=== PATIENT | female | born 1950 | race Caucasian/White ===

== ENCOUNTER 2016-11-13 | Outpatient (CLI) | END 2016-11-13 06:12 | disposition critical access hospital (66) | CPT/HCPCS: A0425; A0427 ==

== ENCOUNTER 2016-11-13 06:32 | Emergency (ER) | payer MEDICARE, OTHER ==
[2016-11-13] MEDS ORDERED: SODIUM CHLORIDE 0.9% 1,000 ML IV ONE (07:46)
[2016-11-13] MEDS ORDERED: DEXAMETHASONE 10 MG/ML VIAL IVP STA (07:46)
[2016-11-13] MEDS ORDERED: CHERRY SYRUP 10 ML UDC PO ONE (08:01)
[2016-11-13] MEDS ORDERED: DEXAMETHASONE 10 MG/ML VIAL ONE ×2 (08:01→08:19)
== END 2016-11-13 09:56 | disposition home or self-care (01) ==
DX: E86.0 Dehydration (principal); J18.9 Pneumonia, unspecified organism; J45.21 Mild intermittent asthma with (acute) exacerbation; I10 Essential (primary) hypertension; E11.9 Type 2 diabetes mellitus without complications; Z79.4 Long term (current) use of insulin; Z79.82 Long term (current) use of aspirin
CPT/HCPCS: 36415; 80053; 83690; 85025; 99283; 99284; A9270

== ENCOUNTER 2016-11-18 12:50 | Outpatient (CLI) | payer MEDICARE, OTHER | END 2016-11-18 12:51 | disposition home or self-care (01) | DX: N05.9 Unspecified nephritic syndrome with unspecified morphologic changes (principal) ==

== ENCOUNTER 2016-11-19 10:16 | Outpatient (CLI) | payer MEDICARE, OTHER | END 2016-11-19 10:17 | disposition home or self-care (01) | DX: N05.9 Unspecified nephritic syndrome with unspecified morphologic changes (principal) ==

== ENCOUNTER 2016-12-12 15:09 | Outpatient (CLI) | payer MEDICARE, OTHER | END 2016-12-12 15:10 | disposition home or self-care (01) | DX: N05.9 Unspecified nephritic syndrome with unspecified morphologic changes (principal) ==

== ENCOUNTER 2017-02-06 12:32 | Observation (INO) | payer MEDICARE, OTHER ==
[2017-02-06] MEDS ORDERED: SODIUM CHLORIDE FLUSH 0.9% 10 ML SYRINGE IVP PRN (16:29)
[2017-02-06] MEDS ORDERED: CARVEDILOL 12.5 MG TABLET PO SCH (16:59)
[2017-02-06] MEDS ORDERED: LORazepam 2 MG/ML SYRINGE IVP PRN (17:26)
[2017-02-06] MEDS: SODIUM CHLORIDE FLUSH 0.9% 10 ML SYRINGE IVP SCH (20:12)
[2017-02-07] MEDS: SODIUM CHLORIDE FLUSH 0.9% 10 ML SYRINGE IVP SCH ×2 (06:03→11:09)
[2017-02-07] MEDS ORDERED: POLYETHYLENE GLYCOL 3350 17 GM PACKET PO SCH (09:00)
[2017-02-07] MEDS ORDERED: ASPIRIN EC 81 MG TABLET PO SCH (09:00)
[2017-02-07] MEDS ORDERED: ISOSORBIDE MONONITRATE ER 30 MG TABLET PO SCH (09:00)
[2017-02-07] MEDS ORDERED: PANTOPRAZOLE 40 MG TABLET PO SCH (09:00)
[2017-02-07] MEDS ORDERED: CARVEDILOL 12.5 MG TABLET PO SCH (09:00)
[2017-02-07] MEDS ORDERED: INSULIN GLARGINE 300 UNIT/3 ML PEN SUBQ SCH (09:00)
[2017-02-07] MEDS ORDERED: SERTRALINE 25 MG TABLET PO SCH (09:00)
[2017-02-07] MEDS ORDERED: DEXTROSE 5% 1,000 ML IV PRN (13:00)
[2017-02-07] MEDS ORDERED: DEXTROSE 50% ABBOJECT 25 GM/50 ML SYRINGE IVP PRN (13:00)
[2017-02-07] MEDS ORDERED: DEXTROSE GEL 37.5 GM TUBE PO PRN (13:00)
[2017-02-07] MEDS ORDERED: GLUCAGON 1 MG/ML VIAL SUBQ PRN (13:00)
[2017-02-07] MEDS ORDERED: amLODIPine 5 MG TABLET PO ONE (13:04)
[2017-02-07] MEDS ORDERED: CLOPIDOGREL 75 MG TABLET PO ONE (14:06)
[2017-02-07] MEDS ORDERED: INSULIN ASPART 300 UNIT/3 ML PEN SUBQ SCH (17:00)
[2017-02-07] MEDS ORDERED: ATORVASTATIN 10 MG TABLET PO SCH (21:00)
== END 2017-02-07 16:00 | disposition home or self-care (01) ==
DX: G45.9 Transient cerebral ischemic attack, unspecified (principal); I12.9 Hypertensive chronic kidney disease with stage 1 through stage 4 chronic kidney disease, or unspecified chronic kidney disease; E11.22 Type 2 diabetes mellitus with diabetic chronic kidney disease; N18.9 Chronic kidney disease, unspecified; K21.9 Gastro-esophageal reflux disease without esophagitis; Z95.5 Presence of coronary angioplasty implant and graft; Z86.73 Personal history of transient ischemic attack (TIA), and cerebral infarction without residual deficits; Z79.4 Long term (current) use of insulin; Z79.82 Long term (current) use of aspirin
CPT/HCPCS: 36415; 70450; 70544; 70547; 70551; 80053; 81001; 82947; 83036; 83690; 85025; 93005; 93010; 99285; A9270; G0378; J1815

== ENCOUNTER 2017-03-07 09:37 | Outpatient (CLI) | payer MEDICARE, OTHER | END 2017-03-07 09:38 | disposition home or self-care (01) | DX: N05.9 Unspecified nephritic syndrome with unspecified morphologic changes (principal); D70.9 Neutropenia, unspecified; R80.9 Proteinuria, unspecified; N25.81 Secondary hyperparathyroidism of renal origin ==

== ENCOUNTER 2017-03-23 14:33 | Outpatient (CLI) | payer MEDICARE, OTHER | END 2017-03-23 14:34 | disposition EMS.NT | LOC: EMS 14:33 | PROVIDERS: ATTEND Surgery | DX: Z03.89 Encounter for observation for other suspected diseases and conditions ruled out (principal); W10.8XXA Fall (on) (from) other stairs and steps, initial encounter; Y93.01 Activity, walking, marching and hiking; Y92.008 Other place in unspecified non-institutional (private) residence as the place of occurrence of the external cause ==

== ENCOUNTER 2017-04-02 10:44 | Emergency (ER) | payer MEDICARE, OTHER ==
--- NOTE | 2017-04-02 12:09 | ED Physician Documentation ---
History of Present Illness - Stated complaint Stated Complaint: L SIDE PAIN - Chief complaint Chief Complaint: General - History obtained from History obtained from: Patient, Family () - History of Present Illness Timing: Other (She fell backwards onto concrete at home, mechanical fall about 10 days ago. Was doing better then got worse again and complains of posterior left low rib pain and some shortness of breath and pain with deep breathing. She denies head injury or neck pain. Of note she is supposed to be on Plavix for a recent TIA, however her medication is missing.) Review of Systems Constitutional: denies: Fever, Chills Throat: denies: Dental pain / toothache, Sore throat Cardiac: denies: Chest pain / pressure, Palpitations, Pedal edema, Calf pain Respiratory: reports: Dyspnea. 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, Hysterectomy Cardiovascular: Coronary stent - Present Medications Home Medications: Ambulatory Orders Medication Instructions Recorded Confirmed Amitriptyline HCl 50 mg PO QPM 07/05/16 02/06/17 Carvedilol [Coreg] 18.75 mg PO BID 07/05/16 02/06/17 Esomeprazole Magnesium 40 mg PO DAILY 07/05/16 02/06/17 Rosuvastatin Calcium [Crestor] 5 mg PO QPM 07/05/16 02/06/17 Sertraline [Zoloft] 25 mg PO DAILY 07/05/16 02/06/17 Isosorbide Mononitrate ER [Imdur] 30 mg PO BID 07/06/16 02/06/17 Insulin Aspart [NovoLOG] 0 - 30 units SUBQ ACHS 11/09/16 02/06/17 Aspirin [Aspirin EC] 81 mg PO DAILY 02/06/17 02/06/17 Furosemide 20 mg PO DAILY PRN 02/06/17 02/06/17 Insulin Glargine [Lantus Solostar] 40 units SUBQ BID 02/06/17 02/06/17 Clopidogrel Bisulfate [Plavix] 75 mg PO DAILY #30 tablet 02/07/17 amLODIPine [Norvasc] 5 mg PO DAILY #30 tablet 02/07/17 Clopidogrel [Plavix] 75 mg PO DAILY #30 tablet 04/02/17 Doxycycline Hyclate 100 mg PO BID #14 tablet 04/02/17 - Allergies Allergies/Adverse Reactions: Allergies Allergy/AdvReac Type Severity Reaction Status Date / Time levofloxacin [From Levaquin] Allergy Unknown Verified 04/02/17 10:55 Penicillins Allergy Hives Verified 04/02/17 10:55 prochlorperazine Allergy Unknown Verified 04/02/17 10:55 [From Compazine] prochlorperazine edisylate * Allergy Unknown Verified 04/02/17 10:55 [From Compazine] prochlorperazine maleate * Allergy Unknown Verified 04/02/17 10:55 [From Compazine] - Social History Does the pt smoke?: No Smoking Status: Never smoker Does the pt drink ETOH?: No Does the pt have substance abuse?: No - Immunizations Immunizations are current?: Yes - POLST Patient has POLST: No PD ED PE NORMAL - Vitals Vital signs reviewed: Yes - General General: Alert and oriented X 3, No acute distress - Neck Neck: Supple, no meningeal sign, No bony TTP - Cardiac Cardiac: RRR, No murmur - Respiratory Respiratory: No respiratory distress, Clear bilaterally, Other (Mild tenderness left low posterior ribs, posterior axillary line.) - Abdomen Abdomen: Soft, Non tender - Extremities Extremities: No deformity, No tenderness to palpate - Neuro Neuro: Alert and oriented X 3, Normal speech - Psych Psych: Normal mood, Normal affect Results - Vitals Vitals: Vital Signs - 24 hr 04/02/17 04/02/17 04/02/17 10:47 10:48 13:14 Temperature 36.3 C L Heart Rate 66 66 Respiratory 20 18 Rate Blood Pressure 198/83 H 174/64 H O2 Saturation 94 97 Oxygen O2 Source Room air - Rads (name of study) L ribs and chest Radiology: EMP read contemporaneously (No frx, + small R base infiltrate with effuision) PD MEDICAL DECISION MAKING - ED course ED course: She presents week out after a rib injury on the left, no visible rib fracture on x-ray there but does have a small pneumonia, likely from poor inspiratory effort. She was administered doxycycline and given incentive spirometer and followup advised. She declined pain medication but did need a refill on her Plavix. Departure - Departure Disposition: 01 Home, Self Care Clinical Impression: Chest wall contusion Qualifiers: Encounter type: initial encounter Laterality: left Qualified Code(s): S20.212A - Contusion of left front wall of thorax, initial encounter Pneumonia Qualifiers: Pneumonia type: due to unspecified organism Laterality: right Lung location: lower lobe of lung Qualified Code(s): J18.1 - Lobar pneumonia, unspecified organism Condition: Good Record reviewed to determine appropriate education?: Yes Instructions: Pneumonia Dc, ED Contusion Rib Prescriptions: Doxycycline Hyclate 100 mg PO BID #14 tablet Clopidogrel [Plavix] 75 mg PO DAILY #30 tablet Comments: Followup with your physician, likely they want to get a repeat chest x-ray in a week or 2. Return if worse. Your blood pressure was elevated today on check in to the emergency department. This does not mean that you have hypertension, it is a common phenomenon to check into the emergency department and have elevated blood pressure. I recommend that you see your primary care physician within the week to have it rechecked when you're feeling better.
[2017-04-02 13:15] VITALS: BP 174/64
--- NOTE | 2017-04-02 13:17 | XRAY Preliminary Report ---
Exam: XR Ribs w/PA Chest LT IMPRESSION: 1. No acute bony abnormality. 2. New small right lung base infiltrate and effusion. 3. Borderline cardiomegaly. [facility] SITE ID: [id number]
[2017-04-02] MEDS ORDERED: DOXYCYCLINE 100 MG TABLET PO STA (13:19)
--- NOTE | 2017-04-02 13:25 | XRAY Report ---
EXAM: LEFT RIB RADIOGRAPHY EXAM DATE: 04/02/2017 12:39 PM. CLINICAL HISTORY: Left rib pain, inferior to the left breast, pain wrapping around the chest since a fall on 03/23/2017. COMPARISON: Two-view chest 11/09/2016. TECHNIQUE: 1 view of the chest and 4 views of the ribs. FINDINGS: Bones: Old fractures lateral aspects of the left fifth, sixth, seventh and eighth ribs. No acute trabecular or cortical disruption. Lungs: New small patchy infiltrate right lateral lung base. Slight blunting right lateral and posteri or costophrenic angles. Interval clearing of the left lung infiltrate. No vascular congestion nor pne umothorax. Mediastinum: Stable borderline cardiomegaly. No adenopathy. Other: None. IMPRESSION: 1. No acute bony abnormality. 2. New small right lung base infiltrate and effusion. 3. Borderline cardiomegaly. [facility] Referring Provider Line: [phone] SITE ID: [id number]
[2017-04-02] MEDS ORDERED: DOXYCYCLINE 100 MG TABLET PO ONE (13:28)
== END 2017-04-02 13:40 | disposition home or self-care (01) ==
LOC: ED 10:44
DX: S20.212A Contusion of left front wall of thorax, initial encounter (principal); W01.0XXA Fall on same level from slipping, tripping and stumbling without subsequent striking against object, initial encounter; J18.9 Pneumonia, unspecified organism; I10 Essential (primary) hypertension; E11.9 Type 2 diabetes mellitus without complications; Z79.4 Long term (current) use of insulin; Z86.73 Personal history of transient ischemic attack (TIA), and cerebral infarction without residual deficits; Z79.01 Long term (current) use of anticoagulants
CPT/HCPCS: 71101; 99283; A9270

== ENCOUNTER 2017-04-14 09:35 | Outpatient (CLI) | payer MEDICARE, OTHER ==
[2017-04-14 10:21] LABS: CALCIUM 8.6 mg/dL (8.5-10.3); CREATININE 3.7 mg/dL (0.4-1.0); POTASSIUM 4.8 mmol/L (3.5-5.0)
== END 2017-04-14 09:36 | disposition home or self-care (01) ==
LOC: LAB 09:35
PROVIDERS: ATTEND Internal Medicine Nephrology
DX: N05.9 Unspecified nephritic syndrome with unspecified morphologic changes (principal)
CPT/HCPCS: 36415; 80048

== ENCOUNTER 2017-04-16 07:32 | Emergency (ER) | payer MEDICARE, OTHER ==
--- NOTE | 2017-04-16 08:05 | ED Physician Documentation ---
PD HPI DYSPNEA - Stated complaint Stated Complaint: DIFFICUTLY BREATHING - Chief complaint Chief Complaint: Resp - History obtained from History obtained from: Patient - History of Present Illness Timing - onset: How many weeks ago (2) Timing - onset during: Rest, Light activity Timing - duration: Weeks (2) Timing - details: Gradual onset, Still present Inciting event(s): URI Improved by: Rest Worsened by: Exertion Associated symptoms: Wheezing. No: Fever, Cough, Hemoptysis, Diaphoresis, Bilateral edema Similar symptoms before: Diagnosis (pneumonia and rad) Recently seen: Emergency Dept (Seen here 04-05-17 diagnosed with pneumonia and placed on doxycycline) - Additional information Additional information: 66 y/o female has had a fall on day, contused the left ribs and developed a pneumonia about 10 days later. She does not have cough or fever but she does have dyspnea and this has persisted despite completing the course of antibiotic. She has not used an inhaler or steroids with this episode. Review of Systems Constitutional: denies: Fever Eyes: denies: Decreased vision Ears: denies: Ear pain Nose: reports: Congestion Throat: denies: Sore throat Cardiac: denies: Chest pain / pressure, Palpitations Respiratory: reports: Dyspnea, Wheezing. denies: Cough GI: denies: Abdominal Pain, Nausea, Vomiting : denies: Dysuria, Frequency Skin: denies: Rash Musculoskeletal: denies: Neck pain PD PAST MEDICAL HISTORY - Past Medical History Cardiovascular: Hypertension, Valve disorder Respiratory: None Neuro: None, CVA Endocrine/Autoimmune: Type 2 diabetes : Renal insuffiency HEENT: None - Past Surgical History Past Surgical History: Yes General: Cholecystectomy, Appendectomy /[employer]IC: Tubal ligation, Hysterectomy Cardiovascular: Coronary stent - Present Medications Home Medications: Ambulatory Orders Medication Instructions Recorded Confirmed Amitriptyline HCl 50 mg PO QPM 07/05/16 04/16/17 Carvedilol [Coreg] 18.75 mg PO BID 07/05/16 04/16/17 Esomeprazole Magnesium 40 mg PO DAILY 07/05/16 04/16/17 Rosuvastatin Calcium [Crestor] 5 mg PO QPM 07/05/16 04/16/17 Sertraline [Zoloft] 25 mg PO DAILY 07/05/16 04/16/17 Insulin Aspart [NovoLOG] 0 - 30 units SUBQ ACHS 11/09/16 04/16/17 Aspirin [Aspirin EC] 81 mg PO DAILY 02/06/17 04/16/17 Furosemide 20 mg PO DAILY PRN 02/06/17 04/16/17 Insulin Glargine [Lantus Solostar] 40 units SUBQ BID 02/06/17 04/16/17 Clopidogrel [Plavix] 75 mg PO DAILY #30 tablet 04/02/17 04/16/17 Albuterol Sulf [Ventolin Hfa 1 - 2 puffs INH Q4HR PRN #1 inhaler 04/16/17 Inhaler] Azithromycin [Zithromax] 250 mg PO DAILY #6 tablet 04/16/17 Calciferol 0 mg DAILY 04/16/17 Cefuroxime Axetil [Ceftin] 500 mg PO Q12H #30 tablet 04/16/17 Colchicine 0 mg PO 04/16/17 predniSONE [Deltasone] 10 mg PO DAILY #26 tablet 04/16/17 - Allergies Allergies/Adverse Reactions: Allergies Allergy/AdvReac Type Severity Reaction Status Date / Time levofloxacin [From Levaquin] Allergy Unknown Verified 04/16/17 07:50 Penicillins Allergy Hives Verified 04/16/17 07:50 prochlorperazine Allergy Unknown Verified 04/16/17 07:50 [From Compazine] prochlorperazine edisylate * Allergy Unknown Verified 04/16/17 07:50 [From Compazine] prochlorperazine maleate * Allergy Unknown Verified 04/16/17 07:50 [From Compazine] - Social History Does the pt smoke?: No Smoking Status: Never smoker Does the pt drink ETOH?: No Does the pt have substance abuse?: No - Immunizations Immunizations are current?: Yes - POLST Patient has POLST: No PD ED PE NORMAL - Vitals Vital signs reviewed: Yes (hypertensive ) - General General: Alert and oriented X 3, No acute distress, Well developed/nourished - HEENT HEENT: Atraumatic, PERRL, EOMI, Other (The left TM shows signs of prior infection with old inflamation around the margins of the TM. The right is clear with tympanosclerosis. ) - Neck Neck: Supple, no meningeal sign, No bony TTP - Cardiac Cardiac: RRR, No murmur - Respiratory Respiratory: No respiratory distress, Other (diminished breath sounds. ) - Abdomen Abdomen: Soft, Non tender - Back Back: No CVA TTP, No spinal TTP - Derm Derm: Normal color, Warm and dry, No rash - Extremities Extremities: No deformity, No edema - Neuro Neuro: No motor deficit, No sensory deficit - Psych Psych: Normal mood, Normal affect Results - Vitals Vitals: Vital Signs - 24 hr 04/16/17 04/16/17 04/16/17 07:38 08:00 08:30 Temperature 36.9 C Heart Rate 77 70 74 Respiratory 18 20 20 Rate Blood Pressure 193/88 H 173/102 H O2 Saturation 98 97 95 04/16/17 04/16/17 04/16/17 09:03 09:10 12:14 Temperature 36.6 C Heart Rate 74 68 70 Respiratory 20 22 20 Rate Blood Pressure 172/98 H 206/86 H O2 Saturation 98 96 Oxygen O2 Source Room air - Labs Labs: Laboratory Tests 04/16/17 04/16/17 04/16/17 08:26 08:26 08:26 WBC 7.3 RBC 3.99 L Hgb 10.6 L Hct 31.9 L MCV 79.9 L MCH 26.5 L MCHC 33.1 RDW 16.3 H Plt Count 156 MPV 7.9 Neut # 4.9 Lymph # 1.4 L [place] # 0.5 Eos # 0.4 Baso # 0.1 Absolute Nucleated RBC 0.00 Nucleated RBCs 0.0 Sodium 135 Potassium 5.0 Chloride 102 Carbon Dioxide 26 Anion Gap 7.0 BUN 71 H Creatinine 3.6 H Estimated GFR (MDRD) 13 L Glucose 142 H Calcium 8.7 Total Bilirubin 0.6 AST 19 ALT 14 Alkaline Phosphatase 121 Troponin I 0.04 B-Natriuretic Peptide Total Protein 6.6 L Albumin 2.7 L Globulin 3.9 Albumin/Globulin Ratio 0.7 L Lipase 24 04/16/17 08:26 WBC RBC Hgb Hct MCV MCH MCHC RDW Plt Count MPV Neut # Lymph # [place] # Eos # Baso # Absolute Nucleated RBC Nucleated RBCs Sodium Potassium Chloride Carbon Dioxide Anion Gap BUN Creatinine Estimated GFR (MDRD) Glucose Calcium Total Bilirubin AST ALT Alkaline Phosphatase Troponin I B-Natriuretic Peptide 1565 H Total Protein Albumin Globulin Albumin/Globulin Ratio Lipase - Rads (name of study) two-view chest Radiology: Prelim report reviewed (Impression: Probable small right pleural effusion, without change. Mild increased bibasilar atelectasis or probable mild infiltrate.), EMP read indepedently, See rad report Procedures - IVC sono (time) 1005 Bedside IVC sono: IVC measures (cm) (0.84), Dehydration PD MEDICAL DECISION MAKING - ED course Complexity details: reviewed old records, reviewed results, re-evaluated patient , considered differential, d/w patient, d/w family ED course: 66 y/o female with a fall and rib contusion and resulting "pneumonia" has developed continued dyspnea. She has improvement with a duo-neb treatment and her x-ray today is read as bibasilar atelectasis or infiltrate. The x-ray does not look like failure. Her BNP is elevated into the 1500 range and she has had an echo showing an ejection fraction of 65% and grade one diastolic dysfunction. An interrogation of the IVC shows a tiny vessel at 0.84 consistent with volume depletion and she is given IV saline as well as IV rocephin. Departure - Departure Disposition: 01 Home, Self Care Clinical Impression: Dehydration Reactive airway disease Qualifiers: Asthma severity: mild intermittent Asthma complication type: with acute exacerbation Qualified Code(s): J45.21 - Mild intermittent asthma with (acute) exacerbation Pneumonia Qualifiers: Pneumonia type: due to unspecified organism Laterality: bilateral Lung location : lower lobe of lung Qualified Code(s): J18.9 - Pneumonia, unspecified organism Instructions: ED Dehydration, ED Pneumonia Adult, ED Reactive Airway Disease Follow-Up: Tu Witt MD [Primary Care Provider] - Prescriptions: Albuterol Sulf [Ventolin Hfa Inhaler] 1 - 2 puffs INH Q4HR PRN #1 inhaler PRN Reason: Shortness Of Air/Wheezing Cefuroxime Axetil [Ceftin] 500 mg PO Q12H #30 tablet predniSONE [Deltasone] 10 mg PO DAILY #26 tablet Azithromycin [Zithromax] 250 mg PO DAILY #6 tablet Discharge Date/Time: 04/16/17 12:30
[2017-04-16 08:30] LABS: BASOPHILS # (AUTO) 0.1 10^3/uL (0.0-0.1); BASOPHILS % (AUTO) 1.1 %; EOSINOPHILS # (AUTO) 0.4 10^3/uL (0.0-0.7); EOSINOPHILS % (AUTO) 5.5 %; HCT - HEMATOCRIT 31.9 % (37.0-47.0); HGB - HEMOGLOBIN 10.6 g/dL (12.0-16.0); LYMPHOCYTES # (AUTO) 1.4 10^3/uL (1.5-3.5); LYMPHOCYTES % (AUTO) 19.3 %; MEAN CORPUSCULAR HEMOGLOBIN 26.5 pg (27.0-31.0); MEAN CORPUSCULAR HGB CONC 33.1 g/dL (32.0-36.0); MEAN CORPUSCULAR VOLUME 79.9 fL (81.0-99.0); MEAN PLATELET VOLUME 7.9 fL (7.9-10.8); MONOCYTES # (AUTO) 0.5 10^3/uL (0.0-1.0); MONOCYTES % (AUTO) 7.2 %; NEUTROPHILS # (AUTO) 4.9 10^3/uL (1.5-6.6); NEUTROPHILS % (AUTO) 66.9 %; RED BLOOD COUNT 3.99 10^6/uL (4.20-5.40); RED CELL DISTRIBUTION WIDTH 16.3 % (12.0-15.0); UNCORRECTED WHITE BLOOD COUNT 7.3 x10^3/uL; WHITE BLOOD COUNT 7.3 x10^3/uL (4.8-10.8)
--- NOTE | 2017-04-16 08:33 | XRAY Preliminary Report ---
Exam: XR Chest 2 View PA/LAT IMPRESSION: Probable small right pleural effusion, without change. Mild increased bibasilar atelectasis or possib le mild infiltrate. [facility] SITE ID: [id number]
--- NOTE | 2017-04-16 08:35 | XRAY Report ---
EXAM: CHEST RADIOGRAPHY EXAM DATE: 04/16/2017 08:18 AM. CLINICAL HISTORY: Dyspnea. COMPARISON: PA chest 04/02/2017. Most recent two-view exam 11/09/2016. TECHNIQUE: 2 views. FINDINGS: Lungs/Pleura: Probable very small right pleural effusion again demonstrated. Increased vertical and b andlike densities lateral right lung base likely represents atelectasis or tracking fluid. Small locu lated pneumothorax is considered unlikely. No other evidence of pneumothorax. Mild right infrahilar a nd medial lower lung probable atelectasis appears slightly increased. Increased mild focal density at the medial left lung base. Mediastinum: Heart and mediastinal contours are unremarkable. Other: Left lateral mid to lower pleural or rib based density as without jaylon change, including comp aring back to 03/28/2016. IMPRESSION: Probable small right pleural effusion, without change. Mild increased bibasilar atelectasis or possib le mild infiltrate. [facility] Referring Provider Line: [phone] SITE ID: [id number]
[2017-04-16 08:46] LABS: ALBUMIN/GLOBULIN RATIO 0.7 (1.0-2.2); BILIRUBIN,TOTAL 0.6 mg/dL (0.2-1.0); CALCIUM 8.7 mg/dL (8.5-10.3); CREATININE 3.6 mg/dL (0.4-1.0); TOTAL PROTEIN 6.6 g/dL (6.7-8.2)
[2017-04-16] MEDS ORDERED: IPRATROPIUM/ALBUTEROL 3 ML NEB INH STA (08:51)
[2017-04-16] MEDS ORDERED: DEXAMETHASONE 10 MG/ML VIAL PO STA (08:51)
[2017-04-16] MEDS ORDERED: DEXAMETHASONE 10 MG/ML VIAL ONE (08:54)
[2017-04-16] MEDS ORDERED: CHERRY SYRUP 10 ML UDC PO ONE (08:54)
[2017-04-16] MEDS ORDERED: SODIUM CHLORIDE 0.9% 1,000 ML IV ONE (10:08)
[2017-04-16] MEDS ORDERED: cefTRIAXone 1 GM in SODIUM CHLORIDE 0.9% MINIBAG 100 ML IV STA (10:08)
[2017-04-16] MEDS ORDERED: cefTRIAXone 1 GM VIAL ONE (10:13)
[2017-04-16 12:14] VITALS: BP 206/86
== END 2017-04-16 12:30 | disposition home or self-care (01) ==
LOC: ED 07:32
DX: J18.9 Pneumonia, unspecified organism (principal); J45.21 Mild intermittent asthma with (acute) exacerbation; E86.0 Dehydration; I10 Essential (primary) hypertension; E11.9 Type 2 diabetes mellitus without complications; Z79.4 Long term (current) use of insulin; Z86.73 Personal history of transient ischemic attack (TIA), and cerebral infarction without residual deficits; Z79.02 Long term (current) use of antithrombotics/antiplatelets; Z79.82 Long term (current) use of aspirin
CPT/HCPCS: 36415; 71020; 80053; 83690; 83880; 84484; 85025; 94640; 96365; 99283; 99284; A9270; J7620

== ENCOUNTER 2017-04-27 06:17 | Outpatient (CLI) | payer MEDICARE, OTHER | END 2017-04-27 06:18 | disposition critical access hospital (66) | LOC: EMS 06:17 | PROVIDERS: ATTEND Surgery | DX: R40.4 Transient alteration of awareness (principal) | CPT/HCPCS: A0425; A0427 ==

== ENCOUNTER 2017-04-27 06:34 | Emergency (ER) | payer MEDICARE, OTHER ==
[2017-04-27] MEDS ORDERED: DEXTROSE 50% ABBOJECT 25 GM/50 ML SYRINGE ONE (06:39)
[2017-04-27] MEDS ORDERED: DEXTROSE 50% ABBOJECT 25 GM/50 ML SYRINGE IVP STA (06:54)
[2017-04-27 07:05] LABS: BASOPHILS # (AUTO) 0.1 10^3/uL (0.0-0.1); EOSINOPHILS # (AUTO) 0.3 10^3/uL (0.0-0.7); EOSINOPHILS % (AUTO) 4.5 %; HCT - HEMATOCRIT 34.3 % (37.0-47.0); HGB - HEMOGLOBIN 10.8 g/dL (12.0-16.0); LYMPHOCYTES # (AUTO) 0.9 10^3/uL (1.5-3.5); LYMPHOCYTES % (AUTO) 14.2 %; MEAN CORPUSCULAR HEMOGLOBIN 25.8 pg (27.0-31.0); MEAN CORPUSCULAR HGB CONC 31.4 g/dL (32.0-36.0); MEAN CORPUSCULAR VOLUME 82.1 fL (81.0-99.0); MEAN PLATELET VOLUME 8.2 fL (7.9-10.8); MONOCYTES # (AUTO) 0.4 10^3/uL (0.0-1.0); NEUTROPHILS # (AUTO) 4.5 10^3/uL (1.5-6.6); NEUTROPHILS % (AUTO) 74.3 %; RED BLOOD COUNT 4.18 10^6/uL (4.20-5.40); RED CELL DISTRIBUTION WIDTH 17.1 % (12.0-15.0)
[2017-04-27 07:18] LABS: ALBUMIN/GLOBULIN RATIO 0.7 (1.0-2.2); BILIRUBIN,TOTAL 0.4 mg/dL (0.2-1.0); CALCIUM 8.3 mg/dL (8.5-10.3); CREATININE 3.8 mg/dL (0.4-1.0); POTASSIUM 4.6 mmol/L (3.5-5.0); TOTAL PROTEIN 5.7 g/dL (6.7-8.2)
[2017-04-27 07:30] VITALS: BP 134/88
--- NOTE | 2017-04-27 07:41 | ED Physician Documentation ---
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 She does not measure but her clothes are fitting looser. She takes lantus 40units bid and she uses sliding scale humalog. This low blood sugar has happened to her several days ago and she has not used any sliding scale since. She has continued the lantus. This morning she was found by her unresponsive and she responded well to the IV D50 given by medics and she was transported as this has recurred. Review of Systems Constitutional: reports: Sweats. denies: Fever, Chills, Myalgias, Fatigue Eyes: denies: Decreased vision Ears: denies: Ear pain Nose: denies: Rhinorrhea / runny nose, Congestion Throat: denies: Sore throat Cardiac: denies: Chest pain / pressure, Palpitations Respiratory: reports: Dyspnea (improved but still present.), Cough (improved) GI: denies: Abdominal Pain, Abdominal Swelling, Nausea, Vomiting : denies: Dysuria, Frequency Skin: denies: Rash Musculoskeletal: denies: Neck pain, Back pain, Extremity pain PD PAST MEDICAL HISTORY - Past Medical History Cardiovascular: Hypertension, Valve disorder Respiratory: None Neuro: None, CVA Endocrine/Autoimmune: Type 2 diabetes : Renal insuffiency HEENT: None Musculoskeletal: Gout - Past Surgical History Past Surgical History: Yes General: Cholecystectomy, Appendectomy /[employer]: Tubal ligation, Hysterectomy Cardiovascular: Coronary stent - Present Medications Home Medications: Ambulatory Orders Medication Instructions Recorded Confirmed Amitriptyline HCl 50 mg PO QPM 07/05/16 04/27/17 Carvedilol [Coreg] 18.75 mg PO BID 07/05/16 04/27/17 Esomeprazole Magnesium 40 mg PO DAILY 07/05/16 04/27/17 Rosuvastatin Calcium [Crestor] 5 mg PO QPM 07/05/16 04/27/17 Sertraline [Zoloft] 25 mg PO DAILY 07/05/16 04/27/17 Insulin Aspart [NovoLOG] 0 - 30 units SUBQ ACHS 11/09/16 04/27/17 Aspirin [Aspirin EC] 81 mg PO DAILY 02/06/17 04/27/17 Furosemide 20 mg PO DAILY PRN 02/06/17 04/27/17 Insulin Glargine [Lantus Solostar] 40 units SUBQ BID 02/06/17 04/27/17 Clopidogrel [Plavix] 75 mg PO DAILY #30 tablet 04/02/17 04/27/17 Albuterol Sulf [Ventolin Hfa 1 - 2 puffs INH Q4HR PRN #1 inhaler 04/16/17 Inhaler] Azithromycin [Zithromax] 250 mg PO DAILY #6 tablet 04/16/17 04/27/17 Calciferol 0 mg DAILY 04/16/17 04/27/17 Cefuroxime Axetil [Ceftin] 500 mg PO Q12H #30 tablet 04/16/17 04/27/17 Colchicine 0 mg PO DAILY PRN 04/16/17 04/27/17 predniSONE [Deltasone] 10 mg PO DAILY #26 tablet 04/16/17 04/27/17 - Allergies Allergies/Adverse Reactions: Allergies Allergy/AdvReac Type Severity Reaction Status Date / Time levofloxacin [From Levaquin] Allergy Unknown Verified 04/27/17 06:43 Penicillins Allergy Hives Verified 04/27/17 06:43 prochlorperazine Allergy Unknown Verified 04/27/17 06:43 [From Compazine] prochlorperazine edisylate * Allergy Unknown Verified 04/27/17 06:43 [From Compazine] prochlorperazine maleate * Allergy Unknown Verified 04/27/17 06:43 [From Compazine] - Social History Does the pt smoke?: No Smoking Status: Never smoker Does the pt drink ETOH?: No Does the pt have substance abuse?: No - Immunizations Immunizations are current?: Yes - POLST Patient has POLST: No PD ED PE NORMAL - Vitals Vital signs reviewed: Yes (hypertensive ) - General General: Alert and oriented X 3, No acute distress, Well developed/nourished - HEENT HEENT: Atraumatic, PERRL, Pharynx benign - Neck Neck: Supple, no meningeal sign, No bony TTP - Cardiac Cardiac: RRR, No murmur - Respiratory Respiratory: No respiratory distress, Clear bilaterally - Abdomen Abdomen: Soft, Non tender - Back Back: No CVA TTP, No spinal TTP - Derm Derm: Normal color, Warm and dry, No rash - Extremities Extremities: No deformity, No edema - Neuro Neuro: Alert and oriented X 3, No motor deficit, No sensory deficit, Normal speech - Psych Psych: Normal mood, Normal affect Results - Vitals Vitals: Vital Signs - 24 hr 04/27/17 04/27/17 04/27/17 06:35 06:46 07:01 Temperature Heart Rate 66 62 70 Respiratory 15 20 26 H Rate Blood Pressure 159/79 H 175/118 H 201/63 H O2 Saturation 99 96 100 04/27/17 07:26 Temperature 35.9 C L Heart Rate 64 Respiratory 16 Rate Blood Pressure 134/88 H O2 Saturation 100 Oxygen O2 Source Room air - EKG (time done) 0727 Rate: Rate (enter#) (65) Intervals: Other (short ME) QRS: LVH Ischemia: Normal ST segments Compare to prior EKG: Unchanged from prior EKG (02-06-17) Computer interpretation: Disagree with computer (I do not find the short ME interval ) - Labs Labs: Laboratory Tests 04/27/17 04/27/17 04/27/17 06:40 06:55 06:55 WBC 6.0 RBC 4.18 L Hgb 10.8 L Hct 34.3 L MCV 82.1 MCH 25.8 L MCHC 31.4 L RDW 17.1 H Plt Count 107 L MPV 8.2 Neut # 4.5 Lymph # 0.9 L [place] # 0.4 Eos # 0.3 Baso # 0.1 Absolute Nucleated RBC 0.00 Nucleated RBCs 0.0 D-Dimer 235.0 Sodium Potassium Chloride Carbon Dioxide Anion Gap BUN Creatinine Estimated GFR (MDRD) Glucose Calcium Total Bilirubin AST ALT Alkaline Phosphatase Troponin I 0.06 Total Protein Albumin Globulin Albumin/Globulin Ratio Lipase 04/27/17 06:55 WBC RBC Hgb Hct MCV MCH MCHC RDW Plt Count MPV Neut # Lymph # [place] # Eos # Baso # Absolute Nucleated RBC Nucleated RBCs D-Dimer Sodium 139 Potassium 4.6 Chloride 104 Carbon Dioxide 26 Anion Gap 9.0 BUN 63 H Creatinine 3.8 H Estimated GFR (MDRD) 12 L Glucose 171 H Calcium 8.3 L Total Bilirubin 0.4 AST 22 ALT 16 Alkaline Phosphatase 95 Troponin I Total Protein 5.7 L Albumin 2.4 L Globulin 3.3 Albumin/Globulin Ratio 0.7 L Lipase 45 PD MEDICAL DECISION MAKING - ED course Complexity details: reviewed old records, reviewed results, re-evaluated patient , considered differential, d/w patient, d/w family ED course: 66 y/o female with type 2 diabetes on insulin has had an insulin reaction that resulted in her being unconscious. She has had lessor episodes every day this week and these were treated with juice at home and she has not talked to her doctor or adjusted her dose of lantus. Today she was very low and require rescue X 2. Her renal function is where she has been running and her trop shows a leak and is consistent with all of her prior trops. She is having some brief sharp spasm like pains in the right upper sternal area this morning. Departure - Departure Disposition: 01 Home, Self Care Clinical Impression: Insulin adverse reaction Qualifiers: Encounter type: initial encounter Qualified Code(s): T38.3X5A - Adverse effect of insulin and oral hypoglycemic [antidiabetic] drugs, initial encounter Condition: Stable Instructions: ED Diabetes Hypoglycemia Insulin React Follow-Up: Tu Witt MD [Primary Care Provider] - Comments: reduce your lantus to 30 units twice per day and follow up with Dr. Witt about your blood pressure and your insulin.
== END 2017-04-27 08:20 | disposition home or self-care (01) ==
LOC: EDUNIT# → ED 06:34
DX: E11.649 Type 2 diabetes mellitus with hypoglycemia without coma (principal); T38.3X5A Adverse effect of insulin and oral hypoglycemic [antidiabetic] drugs, initial encounter; Z79.4 Long term (current) use of insulin; R07.89 Other chest pain; I10 Essential (primary) hypertension
CPT/HCPCS: 36415; 80053; 83690; 84484; 85025; 85379; 93005; 99284; 99285

== ENCOUNTER 2017-05-12 09:11 | Outpatient (CLI) | payer MEDICARE, OTHER ==
[2017-05-12 09:50] LABS: CALCIUM 8.5 mg/dL (8.5-10.3); CREATININE 4.4 mg/dL (0.4-1.0)
== END 2017-05-12 09:12 | disposition home or self-care (01) ==
LOC: LAB 09:11
PROVIDERS: ATTEND Internal Medicine Nephrology
DX: N05.9 Unspecified nephritic syndrome with unspecified morphologic changes (principal)
CPT/HCPCS: 36415; 80048

== ENCOUNTER 2017-08-06 07:38 | Outpatient (CLI) | payer MEDICARE, OTHER | END 2017-08-06 07:39 | disposition short-term general hospital (02) | LOC: EMS 07:38 | PROVIDERS: ATTEND Surgery | DX: R55 Syncope and collapse (principal); R10.9 Unspecified abdominal pain; Z99.2 Dependence on renal dialysis | CPT/HCPCS: A0425; A0427 ==

== ENCOUNTER 2017-09-15 05:25 | Outpatient (CLI) | payer MEDICARE, OTHER | END 2017-09-15 05:26 | disposition home or self-care (01) | LOC: EMS 05:25 | PROVIDERS: ATTEND Surgery | DX: R06.02 Shortness of breath (principal); Z98.62 Peripheral vascular angioplasty status | CPT/HCPCS: A0425; A0427 ==